=== PATIENT | male | born 1955 | race Caucasian/White ===

== ENCOUNTER → 2025-06-04 10:15 | Outpatient (BNVA) | payer MEDICARE, SELFPAY | PROVIDERS: PCP Family Medicine; Referring Provider Family Medicine; Visit Provider Physical Therapy Assistant | DX: Z12.11 Encounter for screening for malignant neoplasm of colon (principal); Z86.0101 Personal history of adenomatous and serrated colon polyps | CPT/HCPCS: S0285 ==

== ENCOUNTER 2025-06-24 07:00 | Day surgery (SDC) | payer MEDICARE, SELFPAY ==
[2025-06-24 07:15] VITALS: BP 124/82; PULSE 73; RESP 16; TEMP 36.7; O2SAT 98
[2025-06-24] MEDS: Lactated Ringers 1,000 ML 80 ML IV (07:43)
--- NOTE | 2025-06-24 07:58 | W.ANESPRE ---
General Info Date of Service Date Performed: 06/24/25 Height: 5 ft 8 in Weight: 85.8 kg Body Mass Index (BMI): 28.8 Surgical Procedure: Operation Date: 06/24/25 08:20 Proposed Procedure Side Surgeon merritt Millan MD Meds Allergies and Home Medications Allergies Allergy/AdvReac Type Severity Reaction Status Date / Time naproxen (From Aleve) Allergy Severe Anaphylaxis Verified 06/24/25 07:22 hayfever Allergy Other (See Uncoded 06/24/25 07:22 Comment) Home Medication Medication Instructions Recorded allopurinol 300 mg tablet 300 mg PO DAILY 10/17/21 citalopram 20 mg tablet 20 mg PO DAILY 10/17/21 hydrocodone 7.5 mg-acetaminophen 1 tab PO Q6H PRN 10/17/21 325 mg tablet naloxone 4 mg/actuation nasal 4 mg intranasal Q3M PRN 10/17/21 spray (Narcan) bisacodyl 5 mg tablet,delayed 5 mg PO ONCE #4 tabs 06/04/25 release (Dulcolax (bisacodyl)) clonazepam 0.5 mg tablet 0.5 mg PO DAILY PRN 06/04/25 polyethylene glycol 3350 17 17 g PO ONCE #238 grams 06/04/25 gram/dose oral powder Current Visit Medications: Current Medications Generic Name Dose Route Start Last Admin Trade Name Freq PRN Reason Stop Dose Admin Ringer's Solution 1,000 mls @ 80 mls/hr 06/24/25 06:00 06/24/25 07:43 IV 06/24/25 23:59 80 mls/hr INFUSION YADIRA Administration IV Miscellaneous Supplies 1 each 06/24/25 06:00 Iv Access IV 06/24/25 23:59 DIRECTED YADIRA Sodium Chloride 0 ml 06/24/25 06:00 Normal Saline Flush 10 Ml Syr IV 06/24/25 23:59 PRN PRN Sodium Chloride 0 ml 06/24/25 06:00 Normal Saline 10 Ml Vial IJ 06/24/25 23:59 DIRECTED PRN Sterile Water 0 ml 06/24/25 06:00 Water,Injection,Sterile 10 Ml Vial IJ 06/24/25 23:59 DIRECTED PRN PFSH Active Problems Active Problems: Problem Status Onset Code Bilateral sensorineural hearing loss Acute H90.3 Medical History Medical History Family hx of colon cancer SHYANN (generalized anxiety disorder) Idiopathic chronic gout of foot without tophus Inflammatory arthritis Tobacco Smoking/Tobacco Use Status: Never Passive smoking exposure: No Alcohol Alcohol Intake: current Alcohol intake frequency: holidays/special occasions only Substance Use Substance use: Never Substance use type: does not use Vital Signs and Lab Results Vital Signs Most Recent Vital Signs in EMR: Most Recent Vital Signs Temp Pulse Resp BP Pulse Ox 36.7 C 73 16 124/82 98 06/24/25 07:15 06/24/25 07:15 06/24/25 07:15 06/24/25 07:15 06/24/25 07:15 Anesthesia Assessment and Plan Anesthesia History Personal History: No History of Anesthesia Complications Family History: No Family History of Anesthesia Complications Exercise Tolerance Exercise Tolerance: Metabolic Equivalents>4 Pertinent Negatives Pertinent Negatives: No Symptoms of GERD Cardiac & Pulmonary Exam Cardiac Exam: Normal S1/S2 Heart Sounds Pulmonary Exam: Clear Bilateral Breath Sounds Implantable Cardiac Device Does patient have a Pacemaker or an ICD?: No Airway Exam Known Difficult Airway: No Mallampati Class: 3 Mouth Opening: Normal (> 3cm) Thyromental Distance: Greater than 3 cm Neck Range of Motion: Full ROM Neck Circumference: Normal Teeth Condition: Generalized Poor Dentition ASA Classification ASA Score: ASA 2 Emergency Case?: No NPO Status NPO Status: NPO Clears >2 hours, Solids >8 hours Anesthesia Plan Resuscitation Status: Full Code Anesthesia Technique: General Anesthesia Airway Planned: Natural Airway Monitors Used: Standard Monitors Preoperative Comments:: Bilateral Hearing aids can remain in
[2025-06-24 08:27] VITALS: BMI 28.8
--- NOTE | 2025-06-24 08:54 | BOWEL_PTH ---
PATIENT: Javy Osullivan LOC: [place] U#:[id number] AGE/SX: 69/M ROOM: RE06/24/[address]: Concetta Millan : 1955 BED: DIS: 06/24/2025 SPEC #: [id number] RECD: 06/24/25 12:15 STATUS: GOLDEN RE #: [id number] JAYJAY: 06/24/25 08:[address]: Concetta Millan DEPT: Surgical Specimen RECD BY: Ceci Eldridge ENTERED: 06/24/25 12:16 SP TYPE: Bowel OTHR DR: Aidan Barillas Tissues: 1 - BIOPSY BOWEL Procedures: GROSS AND MICRO LEVEL 4 Comments: [id number]
[2025-06-24 09:05] VITALS: BP 114/76; PULSE 70; RESP 16; TEMP 36.6; O2SAT 96
--- NOTE | 2025-06-24 09:06 | W.PM.DSUDISC ---
Date of service: 06/24/25 Discharge Plan Disposition Patient Disposition: Home Condition: Good Discharge Details Reason For Visit: Colonoscopy Attending Provider: Concetta Millan Primary Care Provider: Aidan Barillas Recommendations for Follow Up Recommended tests to be ordered by follow up provider: Follow up pathology Home Meds and New Rx's Prescriptions: Continued hydrocodone-acetaminophen 7.5-325 mg tablet 1 tab PO Q6H PRN citalopram 20 mg tablet 20 mg PO DAILY allopurinol 300 mg tablet 300 mg PO DAILY naloxone [Narcan] 4 mg/actuation spray,non-aerosol 4 mg intranasal Q3M PRN Rx Instructions: spray 1 dose into ONE nostril; alternate nostrils w each dose until help arrives clonazepam 0.5 mg tablet 0.5 mg PO DAILY PRN Discontinued bisacodyl [Dulcolax (bisacodyl)] 5 mg tablet,delayed release (DR/EC) 5 mg PO ONCE Qty: 4 0RF Rx Instructions: Take per colonoscopy instructions provided by ordering providers office polyethylene glycol 3350 17 gram/dose powder 17 g PO ONCE Qty: 238 0RF Rx Instructions: Take per colonoscopy instructions provided by ordering providers office Discharge Instructions Instructions: Colon polyps Additional Instructions: Your colonoscopy went well today. You did have one polyp that was removed and will be sent to pathology. Once these results return we will send you a letter by mail. If you have any questions or concerns please contact the general surgery office. 1. If tolerated, consume a soft, low fiber diet for 1-2 days. 2. Do not drive, drink alcohol, operate machinery, make critical decisions, or do activities that require coordination or balance for 24 hours. 3. Because air was put into your colon during the procedure, expelling air from your rectum (passing gas or farting) is normal. 4. You may not have a bowel movement for 1-3 days because of the colonoscopy prep. This is normal. 5. Go directly to the emergency room if you notice any of the following: Develop chills (warm to touch), or if you have a thermometer and your temperature is above 101 Difficulty breathing or difficultly swallowing Persistent vomiting Severe abdominal pain, other than gas cramps Severe chest pain Black, tarry stools Any bleeding – exceeding one tablespoon 6. Call your physician if the site where your intravenous was started becomes red, swollen, painful, and warm to touch. 7. Your physician has reviewed your pre-procedure medications. Please continue to take those medications as previously ordered. You will be given specific information/education regarding any changes to your medications before leaving. Stand Alone Forms: Portal Information Activity:: Activity as Tolerated Diet:: As Tolerated Discharge Orders Discharge Orders: Discharge Order (Routine); Ordered 06/24/25 Ordered By: Concetta Millan
--- NOTE | 2025-06-24 09:09 | COLE_ITS ---
Date of service: 06/24/25 Time of Service: 09: Colonoscopy Report Date of procedure: 06/24/25 Pre-op diagnosis general: Screening colonoscopy, family history of colorectal cancer Post-op diagnosis procedure note: other Procedure: Colonoscopy with polypectomy Surgeon: Concetta Millan Anesthesia Type: General:No Airway Estimated blood loss (mL): 1 Pathology: other (Polyp at 70cm) Complications: None Disposition: PACU Indications: Patient is a 69 yo male who presents for a colonoscopy due to a family history of colorectal cancer and personal history of polyps. He denies any changes in his bowel habits. Prep: Miralax/Dulcolax Procedure Start Time: 08:48 Procedure End Time: 09:01 Retraction Time: 10 Findings: Colon polyp at 70cm removed with cold forceps. Procedure Description: The patient was brought to the endoscopy suite and placed in the left lateral decubitus position. After induction of IV sedation, a digital rectal exam was performed.. Digital exam was normal. The colonoscope was then passed to the cecum without difficulty. Cecal intubation was confirmed by the identification of the appendiceal orifice and the ileocecal valve. Upon withdrawing the colonoscope, all mucosal surfaces were inspected. The prep was noted to be adequate. At 70cm there was a small polyp, which was removed using cold forceps in its entirety. Specimen was retrieved for pathological analysis. There was no other evidence of mucosal abnormality, polyp or cancer. Retroflexion in the rectum was unremarkable.The patient tolerated the procedure well with no complications. Postoperatively, the patient was transferred to the recovery room in stable condition. [place] Bowel Prep [place] Bowel Prep Right Colon: 3 Left Colon: 3 Transverse Colon: 3 Total Score: 9
[2025-06-24 09:35] VITALS: BP 118/92; PULSE 66; RESP 16; TEMP 36.6; O2SAT 98
--- NOTE | 2025-06-24 10:23 | W.ANESPOSTOP ---
Postoperative Evaluation Date, Time and Location Date Performed: 06/24/25 Time Performed: 09:18 Patient Location: Day Surgery Unit Vital Signs Most Recent Imported Vital Signs: Most Recent Vital Signs Temp Pulse Resp BP Pulse Ox 36.6 C 66 16 118/92 H 98 06/24/25 09:35 06/24/25 09:35 06/24/25 09:35 06/24/25 09:35 06/24/25 09:35 Pain Score Most Recent Pain Score: Most Recent Pain Score Pain Level 0 06/24/25 09:35 Assessment Mental Status: Awake (Alert & Oriented to Patient Baseline) Airway and Respiratory Function: Patent airway with normal (patient baseline) respiratory exam Cardiovascular Function: Hemodynamically Stable Hydration Status: Adequately Hydrated Nausea & Vomiting: No Nausea or Vomiting Pain: Pt. Denies Any Pain Peripheral Nerve Block: Patient did not receive a nerve block
== END 2025-06-24 09:45 | disposition home or self-care (01) ==
PROVIDERS: PCP Family Medicine; Visit Provider Student in an Organized Health Care Education/Training Program
PROC: 0DJD8ZZ Inspection of Lower Intestinal Tract, Via Natural or Artificial Opening Endoscopic (ICD-10-PCS; CPT 45378; principal; 2025-06-24 08:15)
DX: Z12.11 Encounter for screening for malignant neoplasm of colon (principal); Z80.0 Family history of malignant neoplasm of digestive organs; D12.4 Benign neoplasm of descending colon
CPT/HCPCS: 45380; 88305; J1596; J2003; J2704